=== PATIENT | female | born 1990 | race African-American/Black ===

== ENCOUNTER 2017-03-23 05:40 | Inpatient (IN) | payer OTHER ==
[2017-03-23 06:24] VITALS: BMI 34.0
[2017-03-23 06:29] LABS: URINE MARIJUANA THC NEGATIVE ng/ml (CUTOFF=50)
[2017-03-23] MEDS ORDERED: ELECTROLYTE-148 SOLN 500 ML IV ONE (06:47)
[2017-03-23] MEDS ORDERED: CITRIC ACID/SODIUM CITRATE 30 ML UNIT-DOSE CUP PO ONE (06:47)
[2017-03-23 06:48] LABS: HIV 1 & 2 AB NEGATIVE; HIV 1 AGp24 NEGATIVE
[2017-03-23] MEDS ORDERED: ELECTROLYTE-148 SOLN 1,000 ML IV SCH ×2 (07:00)
--- NOTE | 2017-03-23 08:08 | HP ---
Past Medical History - Primary Care Physician PCP:: Cayla Benavides - Admission Chief Complaint: 27 yrs, ,previous c/section , 40.4/7 weeks by dates , 40 weeks by sono requests for Repeat c/section History of Present Illness: [facility] [address] [place] [address]. wt gain 26 lbs work Up: O Pos, Rpr nr, Hbsag neg, Rubella pos, Ppd neg , Sickle trait pos( father of baby neg for sickle cell trait), Quad screen neg Gct 79 Hiv rapid test pos on 07/23/16, follow up Aristides Blot test neg Repeat HIV neg h/o urine drug pos for Marijuana on 07/23/16 . Repeat drug tox of urine neg 03/23 h/o bacterial vaginosis in early pregn , treated with Metrogel vaginal gel. 02/22/17 GBS neg, anemia h/h10.7/31.4, gc/ct neg, Pap Nilm . sono done by mfm on 02/24/17 36 weeks, , 34%tile growth, bpp8/8, efw 2536gm, vx post placenta . pt wanted to try , but she refused to wait after her due date. 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 Weeks Gestation by Dates: 40.4 ...EDC by Dates: 03/19/17 ...EDC by Sono: 03/23/17 (40 weeks by sono ) Heme/Onc: Yes: Anemia (iron deff, rx po iron & pnv) Infectious Disease: Yes: STD's (past h/o gc), Other (h/o hpv) Psych: Yes: Other (h/o ptsd) - Past Surgical History Past Surgical History: Yes: (05/24/12) Hx Myomectomy: No Hx Transabdominal Cerclage: No - Smoking History Smoking history: Former smoker Have you smoked in the past 12 months: No - Alcohol/Substance Use Hx Alcohol Use: No History of Substance Use: reports: Marijuana (07/23/16 urine drug screen pos) - Social History History of Recent Travel: No Home Medications - Allergies Allergies/Adverse Reactions: Allergies Allergy/AdvReac Type Severity Reaction Status Date / Time latex Allergy Intermediate Rash Verified 03/23/17 04:59 ibuprofen AdvReac Intermediate Nausea Verified 03/23/17 04:58 - Home Medications Home Medications: Ambulatory Orders Vit No.130/Iron/FA [ Vitamins] 1 each PO DAILY 03/23/17 Physical Exam - Maternity Vital Signs: Vital Signs Temperature 98.2 F 03/23/17 06:13 Pulse Rate 82 03/23/17 06:13 Respiratory Rate 18 03/23/17 06:13 Blood Pressure 102/58 03/23/17 06:13 O2 Sat by Pulse Oximetry (%) Constitutional: Yes: No Distress, Calm Eyes: Yes: WNL HENT: Yes: WNL, Normocephalic Neck: Yes: WNL Cardiovascular: Yes: WNL, Regular Rate and Rhythm Lungs: Clear to auscultation Breast(s): Yes: WNL. No: Right - Abdominal Exam/OB Fundal Height: 40 Number of Fetuses: Single Presentation: Vertex Contractions: Yes Regularity: Irregular Intensity: Unaware Monitor Mode: External Heart Rate (range): 130 Heart Rate Location: [facility] Category: I Accelerations: Uniform Decelerations: None - Vaginal Exam/OB Speculum Exam: No Dilatation (cm): close Effacement (%): unefface Amniotic Membrane Status: Intact Presentation: Vertex/Position Station: -3 - Physical Exam Musculoskeletal: Yes: WNL Extremities: Yes: WNL. No: Calf Tenderness Edema: LLE: Trace, RLE: Trace Integumentary: Yes: WNL, Incision (old pfannensteil scar), Tattoos Deep Tendon Reflex Grade: Normal +2 ...Motor Strength: WNL Psychiatric: Yes: WNL, Alert, Oriented - Labs Lab Results: Laboratory Tests 03/22/17 03/22/17 03/22/17 19:20 19:20 19:20 WBC 7.0 Hgb 10.7 Hct 31.2 L Plt Count 264 PT with INR 10.90 INR 0.96 Sodium Potassium Chloride Carbon Dioxide BUN Creatinine Random Glucose AST ALT Urine Protein Negative Opiates Screen Methadone Screen Barbiturate Screen Phencyclidine Screen Ur Amphetamines Screen MDMA (Ecstasy) Screen Benzodiazepines Screen Cocaine Screen U Marijuana (THC) Screen HIV 1&2 Antibody Screen HIV P24 Antigen 03/22/17 03/23/17 03/23/17 19:20 06:00 06:00 WBC Hgb Hct Plt Count PT with INR INR Sodium 136 Potassium 3.8 Chloride 103 Carbon Dioxide 24 BUN 5 L Creatinine 0.6 Random Glucose 78 AST 17 ALT 20 Urine Protein Opiates Screen Negative Methadone Screen Negative Barbiturate Screen Negative Phencyclidine Screen Negative Ur Amphetamines Screen Negative MDMA (Ecstasy) Screen Negative Benzodiazepines Screen Negative Cocaine Screen Negative U Marijuana (THC) Screen Negative HIV 1&2 Antibody Screen Negative HIV P24 Antigen Negative Problem List - Problems (1) 40 weeks gestation of Code(s): Z3A.40 - 40 WEEKS GESTATION OF (2) Previous section Code(s): Z98.891 - HISTORY OF UTERINE SCAR FROM PREVIOUS SURGERY (3) Anemia Code(s): D64.9 - ANEMIA, UNSPECIFIED Qualifiers: Anemia type: iron deficiency Iron deficiency anemia type: inadequate dietary iron intake Qualified Code(s): D50.8 - Other iron deficiency anemias Assessment/Plan 27 yrs , prevvious c/sction, requests for repeat c/sction Plan Repeat LFTCsction
[2017-03-23] MEDS ORDERED: ONDANSETRON 4 MG/2 ML VIAL IVPUSH PRN (08:57)
[2017-03-23] MEDS ORDERED: morphine SULFATE/Preservative Free 0.5 MG/ML (1cc Syringe) SPIN ONE (08:57)
[2017-03-23] MEDS ORDERED: OXYTOCIN 20 UNITS in 0.9% NS 20 UNIT/1,000 ML INFUS.BAG IV SCH (09:00)
[2017-03-23] MEDS ORDERED: METHYLERGONOVINE MALEATE 0.2 MG/1 ML AMP IM PRN (09:29)
[2017-03-23] MEDS ORDERED: D5W-LR W/ 20 UNITS OXYTOCIN 20 UNIT/1,000 ML INFUS.BAG IV SCH (09:30)
[2017-03-23] MEDS ORDERED: ACETAMINOPHEN 1000 MG/100 ML VIAL (NON FORMULARY) IVPB PRN (09:45)
--- NOTE | 2017-03-23 09:52 | OP ---
Operative Note - Note: Operative Date: 03/23/17 Pre-Operative Diagnosis: 40 weeks, previous c/section , requests repeat c/sction Operation: Repeat LFTC/section Findings: TOB 8.36AM, Baby Girl, 9/9 , wt 7'13".ht 19.5" Both tubes & ovaries normal . Surgeon: Cayla Benavides Coal Cager: Obey Garcia Anesthesiologist/PAVING STONE INSTALLER: Viral Rojas Anesthesia: Spinal Specimens Removed: placenta. cord blood sample Estimated Blood Loss (mls): 500 Drains, Volume Out (mls): 200 (danielson, joselin color ) Fluid Volume Replaced (mls): 1,800 (iv Ancef 1 gm preop given ) Operative Report Dictated: Yes
--- NOTE | 2017-03-23 10:06 | PN ---
Delivery - Delivery Section: Repeat, Low Flap Transverse (Indication: 40 weeks, previous c/ section) Type of Anesthesia: Spinal EBL (cc): 500 (Victoria output 200 ml joselin color ) Delivery, Single - Stages of Labor Date of Delivery: 03/23/17 Time of Delivery: 08:36 Date Placenta Delivered: 03/23/17 Time Placenta Delivered: 08:37 Placenta: Yes: Manual Removal, Uterine Exploration - Condition of Information Lead/Real Estate Agent/Broker Present: No Gender: Female Weight: 7 lb 13 oz Position: Right, OT Total Hours ROM (Hrs/Mins): 1 min - 1 Minute Total Score: 9 5 Minutes Total Score: 9 - Feeding Plan Initial Plan: Elected not to breastfeed exclusively throughout hospitalization Remarks - Remarks Remarks: 27 yrs , 40 weeks by nikio, 40.4 weeks by taye ,previous c[facility] to [address] [place] [address] Gbs neg pt requests for repeat c/section. Intraop course uneventful .
--- NOTE | 2017-03-23 10:36 | OP ---
DATE OF OPERATION: 03/23/2017 PREOPERATIVE DIAGNOSIS: A 40-week , previous section, requested repeat section. OPERATION DONE: Repeat low flap transverse section. SURGEON: Cayla Benavides MD FLYER BUILDER SURGEON: BRITNEY Garcia ANESTHESIOLOGIST: Viral Rojas MD ANESTHESIA: Spinal. FINDINGS: This is a 27-year-old 11 para 1-0-9-1 with a history of 1 previous in 2012, and patient does not want to wait another week for a trial. She requested repeat . Cervix was closed, posterior. Patient not in labor. PROCEDURE: Abdomen was shaved, prepped. Victoria catheter was placed. She was taken to the operating room table. Spinal anesthesia was given. She was placed in the supine position. Abdomen was painted and draped in the usual manner. Level of anesthesia was checked, time-out was done, and then, a Pfannenstiel incision was made through the previous scar. The skin and subcutaneous tissue were entered. Anterior rectus sheath was incised transversely. Bleeding points were clamped and cauterized. The rectus muscle was from the rectus sheath. Parietal peritoneum was opened vertically, and lower flap of the peritoneum was identified, and it was incised transversely. Bladder was pushed down, and the lower uterine segment was incised transversely. The amniotic fluid was clear. Baby was delivered from the ROT position, a baby girl. was 9, 9. Babys weight was 7 pounds 13 ounces, and height was 19.5 inches. Baby was born at 8:36 a.m. Cord was clamped, cut. Cord blood was collected. Placenta was removed completely with membranes. Then, the uterine incision was closed in 2 layers. The first layer was closed with a Biosyn 0 suture, continuous locking sutures were taken, second layer also was closed with a Biosyn 0 suture continuous intermittently locking suture, and vertical mattress sutures were taken. Hemostasis was verified. Then, the bladder peritoneum also was closed with Biosyn 0 suture. Both tubes and ovaries were normal. Irrigation was done, and hemostasis checked once more. Then, the closure of the abdomen was done. Omental adhesion was lysed from the apical end of the peritoneum, and omentum was freed from the parietal peritoneum. Then, closure of the parietal peritoneum was done with Biosyn 0 suture, continuous sutures were taken. Muscles were approximated with interrupted Vicryl 0 suture. Hemostasis was checked underneath the rectus sheath flap. The rectus sheath was from the skin scar, and subcutaneous tissue was mobilized. The anterior rectus sheath was closed with 0 Vicryl suture. Continuous sutures were taken. Hemostasis was verified. Then, interrupted sutures were taken with Biosyn 0 suture in the subcutaneous tissue. The skin was approximated with yvette. Pressure dressing was given. Patient tolerated the procedure well. Blood clots were removed from the vagina. She received IV Ancef 1 g prior to the incision, and urine output intraoperatively was 200 mL. It was joselin color. She was transferred to the recovery room in stable condition. Angel [id number] MTDD
[2017-03-23] MEDS ORDERED: ALBUTEROL SO4 18 GM HFA INHALER IH PRN (10:48)
--- NOTE | 2017-03-23 11:03 | DS ---
Physical Exam-SLAB OFF MILL TENDER Vital Signs: Vital Signs Temperature 97.4 F L 03/23/17 09:25 Pulse Rate 71 03/23/17 10:40 Respiratory Rate 18 03/23/17 10:40 Blood Pressure 116/67 03/23/17 10:40 O2 Sat by Pulse Oximetry (%) Selected Entries 03/26/17 10:00 Temperature 98.7 F Pulse Rate 93 H Respiratory 20 Rate Blood Pressure 137/67 Constitutional: Yes: Well Nourished Eyes: Yes: WNL HENT: Yes: WNL Neck: Yes: WNL Cardiovascular: Yes: WNL Respiratory: Yes: WNL Gastrointestinal: Yes: WNL, Normal Bowel Sounds, Soft. No: Distention ....Post : Yes: Uterus firm, Uterus non-tender, Moderate lochia rubra Breast(s): Yes: WNL (BF) Musculoskeletal: Yes: WNL Extremities: Yes: WNL. No: Calf Tenderness Edema: LLE: 1+, RLE: 1+ Integumentary: Yes: WNL, Body Piercing Wound/Incision: Yes: Clean/Dry, Well Approximated, [place] Intact, Open to air Neurological: Yes: WNL, Alert ...Motor Strength: WNL Psychiatric: Yes: WNL, Alert, Oriented Labs: Laboratory Tests 03/26/17 07:00 WBC 6.4 D Hgb 10.2 L Hct 29.6 L RDW 14.4 Neutrophils % 61.7 D Lymphocytes % 25.1 D Monocytes % 8.6 Delivery - Delivery Section: Repeat, Low Flap Transverse (Indication: 40 weeks, previous c/ section) Type of Anesthesia: Spinal Episiotomy/Laceration: None EBL (cc): 500 (Victoria output 200 ml joselin color ) Delivery, Single - Stages of Labor Date of Delivery: 03/23/17 Time of Delivery: 08:36 Time Placenta Delivered: 08:37 Placenta: Yes: Manual Removal, Uterine Exploration - Condition of Infant Implementation Specialist Payroll/Bioinformatics Associate Present: No Gender: Female Weight: 7 lb 13 oz Position: Right, OT Total Hours ROM (Hrs/Mins): 1 min - 1 Minute Total Score: 9 5 Minutes Total Score: 9 - Strum Feeding Plan Initial Plan: Elected not to breastfeed exclusively throughout hospitalization Remarks - Remarks Remarks: 27 yrs , 40 weeks by tisha, 40.4 weeks by taye ,[facility] Gbs neg pt requests for repeat c/section. Intraop course uneventful . post op course uneventful psyche consult was requested due to h/o ptsd.no active management reqd. she will follow with her therapist in [facility] she will i RTC on Tuesday for yvette removal. Anemia was counselled,she will continue po iron n pnv she is discharged 03/26/17 Discharge Summary Reason For Visit: LABOR ADMIT Current Active Problems 40 weeks gestation of (Acute) Anemia (Acute) Delivery by (planned) section occurring after 37 completed weeks of gestation but before 39 completed weeks gestation due to (spontaneous) onset of labor, with mention of complication (Acute) Previous section (Acute) Condition: Stable - Instructions Diet, Activity, Other Instructions: Post Instructions DIET: Continue good diet high in protein, calcium, and iron rich foods. Drink at least eight (8) glasses of water daily in addition to other fluids. ___ Regular diet ___ LoCarb/Low Calorie Diet ___ Diabetic Diet MEDICATIONS: Continue vitamins and iron as previously directed. Motrin and Tylenol may be taken for minor discomfort. ACTIVITY: Mild to moderate exercise may be started in two (2) weeks. Take frequent rest periods. Resume normal activity after six (6) week check up. WOUND CARE OF OPERATIVE SITE: Continue use of perineal bottle until vaginal discharge stops. Keep area clean. Shower daily. Keep abdominal wound dry. Report any drainage or redness to physician. Tub baths, tampons and douches are not permitted for [address] Breast feeding & or Bottle feeding BREAST CARE: (For those that are not breast feeding): If engorgement occurs: Wear tight fitting bra. Take Tylenol or Motrin for pain. Apply cold packs (ice in bags to each breast ) FAMILY PLANNING: There are many control alternatives to pursue and they should be discussed at your first office visit. You may resume sexual activity after your six (6) week check up. (Remember, breast feeding is not a contraceptive) NEXT PHYSICIAN APPOINTMENT: Be certain to call for a one (1) week appointment, unless otherwise directed. RTC for wound check Call Clinic or got to Emergency Dept if you have any of the following: Heavy vaginal bleeding Painful urination Leg pain Unusual odor noted to vaginal bleeding High fever Red streaking noted on breast Referrals: Cayla Benavides MD [Primary Care Provider] - Disposition: HOME - Home Medications Comprehensive Discharge Medication List: Ambulatory Orders Acetaminophen [Tylenol .Regular Strength -] 500 mg PO Q4H PRN #30 tablet Albuterol Sulfate Inhaler - [Ventolin HFA Inhaler -] 2 puff IH Q4H PRN inhaler 03/23/17 Ferrous Sulfate [Feosol] 325 mg PO BIDWM #60 tab 03/23/17 Oxycodone HCl [Roxicodone -] 5 mg PO Q4H PRN #30 tablet MDD 4 tabs 03/23/17 Vit No.130/Iron/FA [ Tablet] 1 each PO DAILY 03/23/17 Vitamins (Sjr) - 1 tab PO DAILY tablet 03/23/17
[2017-03-23] MEDS: CEFAZOLIN 1 GM PUSH 1 GM/10 ML DISP.SYRIN IVPUSH SCH (15:33)
[2017-03-23] MEDS ORDERED: CEFAZOLIN 1 GM/D5W 50 ML IVPB SCH (16:00)
[2017-03-24] MEDS: CEFAZOLIN 1 GM PUSH 1 GM/10 ML DISP.SYRIN IVPUSH SCH ×2 (01:27→08:34)
--- NOTE | 2017-03-24 05:47 | PN ---
Post Progress Note - Subjective Subjective: 27 yo Para 2 status post repeat , seen and evaluated. She's lying comfortably in bed. She c/o mild incision pain. Post Day: 1 Type of Delivery: Repeat C/S Vital Signs: Vital Signs Temperature 98.6 F 03/24/17 01:50 Pulse Rate 89 03/24/17 01:50 Respiratory Rate 20 03/24/17 05:00 Blood Pressure 96/57 03/24/17 01:50 O2 Sat by Pulse Oximetry (%) Breast Exam: Yes: Soft Uterus: Yes: Fundus Firm Incision: Yes: Dressing dry and intact Abdomen/GI: Yes: Abdomen soft Lochia: Yes: Rubra Lochia, amount: Small Extremities: Yes: Calves non-tender Perineum: Yes: Intact Activity: Other (Lying in bed) Assessment/Plan Status post repeat Ambulation Analgesia as needed Continue routine post op care
[2017-03-24 08:17] LABS: BASOPHIL 0.8 % (0-2.0); EOSINOPHIL 1.2 % (0-4.5); MCH 30.8 pg (25.7-33.7); MCHC 34.6 g/dl (32.0-36.0); MEAN PLT VOLUME 7.6 fl (7.5-11.1); NEUTROPHILS 77.8 % (42.8-82.8); PLATELET COUNT 269 K/MM3 (134-434); RDW 14.3 % (11.6-15.6); WHITE BLOOD COUNT 11.1 K/mm3 (4.0-10.0)
[2017-03-24] MEDS: PRENATAL VITAMINS W/ FOLIC ACID TABLET (FP) PO SCH (09:25)
[2017-03-24] MEDS: ENOXAPARIN NA (PORCINE) 40 MG/0.4 ML DISP.SYRIN SQ SCH (09:26)
[2017-03-24] MEDS: oxyCODONE HCL 5 MG TABLET PO PRN ×3 (09:26→21:34)
[2017-03-24] MEDS: SIMETHICONE 80 MG TAB.CHEW (FP) PO PRN ×3 (09:26→21:31)
[2017-03-24] MEDS: ACETAMINOPHEN 325 MG TABLET (FP) PO PRN ×3 (09:28→21:31)
[2017-03-24] MEDS ORDERED: BISACODYL 10 MG SUPP.RECT RC PRN (09:30)
[2017-03-24] MEDS ORDERED: DIPHTH,PERTUSS(ACELL),TET 0.5 ML DISP.SYRIN IM ONE (14:00)
[2017-03-24] MEDS: SENNOSIDES/DOCUSATE COMBO (SENNA PLUS) TABLET (UD) PO PRN (21:31)
[2017-03-24] MEDS: FERROUS SO4 325 MG TABLET (FP) PO SCH (21:31)
[2017-03-25] MEDS: oxyCODONE HCL 5 MG TABLET PO PRN ×5 (01:16→23:18)
[2017-03-25] MEDS: SIMETHICONE 80 MG TAB.CHEW (FP) PO PRN ×5 (01:16→23:17)
[2017-03-25] MEDS: ACETAMINOPHEN 325 MG TABLET (FP) PO PRN ×5 (01:16→23:17)
--- NOTE | 2017-03-25 07:06 | PN ---
Progress Note, Physician Chief Complaint: S/P C SECTION UNDER SPINAL ANESTHESIA History of Present Illness: POST OP DAY ONE DURAMORPH FOR POST OP PAIN CONTROL - Current Medication List Current Medications: Active Medications Acetaminophen (Tylenol -) 650 mg PO Q4H PRN PRN Reason: FEVER OR PAIN Last Admin: 03/25/17 06:10 Dose: 650 mg Acetaminophen (Ofirmev Injection -) 1,000 mg IVPB Q6H PRN PRN Reason: FEVER OR PAIN Last Admin: 03/23/17 10:50 Dose: 1,000 mg Albuterol Sulfate (Ventolin Hfa Inhaler -) 2 puff IH Q4H PRN PRN Reason: SHORT OF BREATH/WHEEZING Bisacodyl (Dulcolax Suppository -) 10 mg RC PRN PRN PRN Reason: CONSTIPATION Diphenhydramine HCl (Benadryl Injection -) 25 mg IVPUSH Q4H PRN PRN Reason: Pruritis Last Admin: 03/24/17 03:34 Dose: 25 mg Enoxaparin Sodium (Lovenox -) 40 mg SQ DAILY [facility] Last Admin: 03/24/17 09:26 Dose: 40 mg Ferrous Sulfate (Feosol -) 325 mg PO BIDWM [facility] Last Admin: 03/24/17 21:31 Dose: 325 mg Parenteral Electrolytes (Plasma-Lyte 148 -) 1,000 mls @ 125 mls/hr IV ASDCOUNT INCLUDES THE [facility] Last Admin: 03/23/17 06:15 Dose: 125 mls/hr Oxytocin/Sodium Chloride (Normal Saline+20 Units Oxytocin -) 20 unit in 1,000 mls @ 125 mls/hr IV ASDCOUNT INCLUDES THE [facility] Last Admin: 03/23/17 08:37 Dose: 125 mls/hr Methylergonovine Maleate (Methergine Injection -) 0.2 mg IM Q4H PRN PRN Reason: Excessive Bleeding (L&D) Ondansetron HCl (Zofran Injection) 4 mg IVPUSH Q4H PRN PRN Reason: NAUSEA Oxycodone HCl (Roxicodone -) 5 mg PO Q4H PRN PRN Reason: PAIN LEVEL 1-5 Last Admin: 03/25/17 06:09 Dose: 5 mg Oxycodone HCl (Roxicodone -) 10 mg PO Q4H PRN PRN Reason: PAIN LEVEL 6-10 Last Admin: 03/25/17 01:16 Dose: 10 mg Multivit/Folic Acid/Iron ( Vitamins (Sjr) -) 1 tab PO DAILY [facility] Last Admin: 03/24/17 09:25 Dose: 1 tab Senna/Docusate Sodium (Pericolace -) 2 tablet PO HS PRN PRN Reason: CONSTIPATION Last Admin: 03/24/17 21:31 Dose: 2 tablet Simethicone (Mylicon -) 80 mg PO Q4H PRN PRN Reason: GAS Last Admin: 03/25/17 06:09 Dose: 80 mg - Objective Vital Signs: Vital Signs Temperature 98.5 F 03/24/17 21:58 Pulse Rate 90 03/24/17 21:58 Respiratory Rate 20 03/24/17 21:58 Blood Pressure 102/69 03/24/17 21:58 O2 Sat by Pulse Oximetry (%) Constitutional: Yes: Well Nourished Cardiovascular: Yes: WNL Respiratory: Yes: WNL Gastrointestinal: Yes: WNL Neurological: Yes: WNL Labs: CBC, BMP 03/24/17 06:25 Assessment/Plan NO ADVERSE EFFECT OF ANESTHETIC, PAIN CONTROLLED, DEPT OF ANESTHESIA WILL SIGN OFF CARE AT THIS TIME
--- NOTE | 2017-03-25 08:23 | PN ---
Progress Note (short form) - Note Progress Note: pod 2 c/o low abdominal cramps. ambulating, passing gas CBC, BMP 03/24/17 06:25 Last Vital Signs Temp Pulse Resp BP Pulse Ox 98.5 F 90 20 102/69 03/24/17 21:58 03/24/17 21:58 03/24/17 21:58 03/24/17 21:58 abdomen soft, no distension, no cva incision dry, clean no calf tenderness plan ambulate, pain management
[2017-03-25] MEDS: FERROUS SO4 325 MG TABLET (FP) PO SCH ×2 (09:06→19:00)
[2017-03-25] MEDS: ENOXAPARIN NA (PORCINE) 40 MG/0.4 ML DISP.SYRIN SQ SCH (09:06)
[2017-03-25] MEDS: PRENATAL VITAMINS W/ FOLIC ACID TABLET (FP) PO SCH (09:06)
--- NOTE | 2017-03-25 12:18 | CON.PSY ---
Psychiatry Consult Chief Complaint: 27 year old AA female, s/p C section. Patient seen for psych evaluation. Histrory of Bipolar disoprder. patient said they changed her diagnosed with PTSD. Patient feels ok. She denies any depression or suicidal or Homicidal ideas at tyhis time. - Previous Psychiatric Treatment Outpatient: Less than 6 mos ago Inpatient: None - Previous Substance Abuse Treatment Outpatient: None Inpatient: None - Reason for Previous Treatment Reason for Previous Treatment: Biploar Illness, Past Traumatic Stress - Current Medications Current Medications: Active Medications Acetaminophen (Tylenol -) 650 mg PO Q4H PRN PRN Reason: FEVER OR PAIN Last Admin: 03/25/17 12:06 Dose: 650 mg Acetaminophen (Ofirmev Injection -) 1,000 mg IVPB Q6H PRN PRN Reason: FEVER OR PAIN Last Admin: 03/23/17 10:50 Dose: 1,000 mg Albuterol Sulfate (Ventolin Hfa Inhaler -) 2 puff IH Q4H PRN PRN Reason: SHORT OF BREATH/WHEEZING Bisacodyl (Dulcolax Suppository -) 10 mg RC PRN PRN PRN Reason: CONSTIPATION Diphenhydramine HCl (Benadryl Injection -) 25 mg IVPUSH Q4H PRN PRN Reason: Pruritis Last Admin: 03/24/17 03:34 Dose: 25 mg Enoxaparin Sodium (Lovenox -) 40 mg SQ DAILY [facility] Last Admin: 03/25/17 09:06 Dose: 40 mg Ferrous Sulfate (Feosol -) 325 mg PO BIDWM [facility] Last Admin: 03/25/17 09:06 Dose: 325 mg Parenteral Electrolytes (Plasma-Lyte 148 -) 1,000 mls @ 125 mls/hr IV ASDIR [facility] Last Admin: 03/23/17 06:15 Dose: 125 mls/hr Oxytocin/Sodium Chloride (Normal Saline+20 Units Oxytocin -) 20 unit in 1,000 mls @ 125 mls/hr IV ASDIR [facility] Last Admin: 03/23/17 08:37 Dose: 125 mls/hr Methylergonovine Maleate (Methergine Injection -) 0.2 mg IM Q4H PRN PRN Reason: Excessive Bleeding (L&D) Ondansetron HCl (Zofran Injection) 4 mg IVPUSH Q4H PRN PRN Reason: NAUSEA Oxycodone HCl (Roxicodone -) 5 mg PO Q4H PRN PRN Reason: PAIN LEVEL 1-5 Last Admin: 03/25/17 12:07 Dose: 5 mg Oxycodone HCl (Roxicodone -) 10 mg PO Q4H PRN PRN Reason: PAIN LEVEL 6-10 Last Admin: 03/25/17 01:16 Dose: 10 mg Multivit/Folic Acid/Iron ( Vitamins (Sjr) -) 1 tab PO DAILY [facility] Last Admin: 03/25/17 09:06 Dose: 1 tab Senna/Docusate Sodium (Pericolace -) 2 tablet PO HS PRN PRN Reason: CONSTIPATION Last Admin: 03/24/17 21:31 Dose: 2 tablet Simethicone (Mylicon -) 80 mg PO Q4H PRN PRN Reason: GAS Last Admin: 03/25/17 12:06 Dose: 80 mg - Allergies Allergies: Allergies Allergy/AdvReac Type Severity Reaction Status Date / Time latex Allergy Intermediate Rash Verified 03/23/17 04:59 ibuprofen AdvReac Intermediate Nausea Verified 03/23/17 04:58 - Current Living Status Usual Living Arrangement: With Spouse - Current Mental Status Evaluation Appearance: Well Groomed Attitude: Cooperative - Affect Affect: Full Range Appropriateness: Appropriate to Content - Mood Mood: Euthymic - Speech/Language Expressive: Coherent - Psychomotor Activity Psychomotor Activity: Normal - Thought Process Thought Process: Intact - Thought Content Hallucinations: Absent Delusions: Absent - Self Perception Self Perception: No Impairment - Cognition Attention: Alert Orientation: Time Memory, Immediate Recall: Intact Memory, Short Term: 3/3 Memory, Remote with Promptin/3 - Concentration Serial Sevens Intact: Yes Simple Calculations Intact: Yes - Abstraction Proverb Interpretation: Intact Judgement: Intact - Insight Insight: Intact - Impulse Control Impulse Control: Good Control - Suicidal Ideation Suicidal Ideation: No - Homicidal Ideation Homicidal Ideation: No Assessment/Plan 1) No acute Mental illness at this time. 2) will follow up with her therapist at [facility] after discharge. 3) No psych meds needed at this time.
[2017-03-25] MEDS: SENNOSIDES/DOCUSATE COMBO (SENNA PLUS) TABLET (UD) PO PRN (21:46)
[2017-03-26] MEDS: ACETAMINOPHEN 325 MG TABLET (FP) PO PRN ×2 (05:27→11:43)
[2017-03-26] MEDS: SIMETHICONE 80 MG TAB.CHEW (FP) PO PRN ×2 (05:27→11:46)
[2017-03-26] MEDS: oxyCODONE HCL 5 MG TABLET PO PRN ×2 (05:27→11:45)
[2017-03-26] MEDS: FERROUS SO4 325 MG TABLET (FP) PO SCH (08:00)
[2017-03-26 08:20] LABS: BASOPHIL 0.5 % (0-2.0); EOSINOPHIL 4.1 % (0-4.5); MCH 30.5 pg (25.7-33.7); MCHC 34.4 g/dl (32.0-36.0); MEAN CELL VOLUME 88.8 fl (80-96); MEAN PLT VOLUME 6.8 fl (7.5-11.1); NEUTROPHILS 61.7 % (42.8-82.8); PLATELET COUNT 300 K/MM3 (134-434); RDW 14.4 % (11.6-15.6); WHITE BLOOD COUNT 6.4 K/mm3 (4.0-10.0)
[2017-03-26] MEDS: ENOXAPARIN NA (PORCINE) 40 MG/0.4 ML DISP.SYRIN SQ SCH (10:08)
[2017-03-26] MEDS: PRENATAL VITAMINS W/ FOLIC ACID TABLET (FP) PO SCH (10:08)
[2017-03-26 10:54] VITALS: BP 137/67; PULSE 93; TEMP 98.7
--- NOTE | 2017-03-26 15:59 | PN ---
Progress Note (short form) - Note Progress Note: pod 3 wants to go home today, no c/o CBC, BMP 03/26/17 07:00 Last Vital Signs Temp Pulse Resp BP Pulse Ox 98.7 F 93 H 20 137/67 03/26/17 10:00 03/26/17 10:00 03/26/17 10:00 03/26/17 10:00 abdomen soft, no distension , uterus firm, non tender,incision dry, clean lochia mild , no calf tenderness plan d/c home, rtc on tuesday for yvette removal
--- NOTE | 2017-03-30 16:08 | PATH ---
Surgical Pathology Report Patient Name: YUMIKO BUSTILLO Med. Rec. #: [id number] /Age/Gender: 1990 (Age: 27) / F Account: [id number] Location: [facility] OBS/DIE POLISHER Taken: 03/23/2017 Received: 03/25/2017 Reported: 03/30/2017 Physicians: Cayla Benavides M.D. Specimen(s) Received PLACENTA Clinical History Asthma, history of marijuana use, positive HPV, bipolar Final Diagnosis PLACENTA, SECTION: 684 g THIRD TRIMESTER PLACENTA WITH TRIVASCULAR UMBILICAL CORD AND UNREMARKABLE PLACENTAL MEMBRANES. Electronically Signed Caprice Becker M.D. Gross Description The specimen is received fresh labeled placenta and is a 684 gram, 22.0 x 16.0 x 2.5 cm. placenta with attached membranes and umbilical cord. The attached membranes are tamez, translucent with focal opacities and insert marginally. The umbilical cord measures 38 cm. in length and averages 1.2 cm. in diameter. The cord inserts eccentrically, 5 cm. to the nearest margin. No true knots or strictures are identified. Cut surface of the umbilical cord reveals 3 vessels. The surface is patel blue with moderate fibrin deposition and appropriate caliber vessels. The maternal surface is red-brown with focal defects. Sectioning reveals red-brown, spongy parenchyma. No lesions are identified. Registered Nurse Obstetrics sections are submitted in three cassettes as follows: 1- membrane rolls and umbilical cord; 2-3- full thickness sections of placenta. 03/29/201703/29/2017
== END 2017-03-26 15:56 | disposition home or self-care (01) | DRG 540 ==
LOC: JLDR 05:40 → J3W 11:00
PROVIDERS: ADMIT Obstetrics & Gynecology; ATTEND Obstetrics & Gynecology
PROC: 10D00Z1 Extraction of Products of Conception, Low, Open Approach (ICD-10-PCS; principal; 2017-03-23)
DX: O48.0 Post-term pregnancy (principal); O34.211 Maternal care for low transverse scar from previous cesarean delivery; O99.02 Anemia complicating childbirth; D50.8 Other iron deficiency anemias; O75.89 Other specified complications of labor and delivery; F31.89 Other bipolar disorder; F43.10 Post-traumatic stress disorder, unspecified; Z37.0 Single live birth; Z3A.40 40 weeks gestation of pregnancy
CPT/HCPCS: 36415; 80307; 85025; 87389; 88307-TC; 90715; 94010